=== PATIENT | male | born 1970 | race Caucasian/White ===

== ENCOUNTER → 2016-10-07 | Outpatient (CLI) | payer BC, OTHER ==
--- NOTE | 2016-10-07 11:01 | REP ---
. Chest two views HISTORY: Hypertension Comparison: 10/21/2014 The lungs are clear. The heart is normal in size. The pulmonary vasculature is normal in appearance. The bony structure is intact. IMPRESSION: No acute disease. Signed by Vick Díaz MD 10/07/2016 10:53 A
--- NOTE | 2016-10-07 20:20 | ECGEPIP ---
Stationary ECG Study [facility] Test Date: 2016-10-07 Pat Name: GERMÁN RANDHAWA Department: Room: - Gender: M Video Editing Intern: : 1970 Requested By: Giancarlo Solomon Order Number: [id number] Reading MD: Maury Connelly Measurements Intervals [place] Rate: 53 P: 33 DE: 171 QRS: 39 QRSD: 92 T: 42 QT: 406 QTc: 384 Interpretive Statements SINUS BRADYCARDIA Electronically Signed On 10-07-2016 20:20:44 EST by Maury Connelly
== END ==
LOC: M EKG 10:14
PROVIDERS: ATTEND Family Medicine
DX: R53.83 Other fatigue (principal); I10 Essential (primary) hypertension

== ENCOUNTER → 2017-12-19 | Outpatient (CLI) | payer BC, OTHER ==
[~2017-12-19] MED LIST: ISOVUE-370 76% 100ML VIAL (Q9967) As Ordered
== END ==
LOC: M RAD 06:56
DX: N13.30 Unspecified hydronephrosis (principal); K57.90 Diverticulosis of intestine, part unspecified, without perforation or abscess without bleeding
CPT/HCPCS: Q9967

== ENCOUNTER 2019-03-08 06:27 | Day surgery (SDC) | payer BC, OTHER ==
[~2019-03-08] VITALS: Ht 188 cm; Wt 98.9 kg
[~2019-03-08 06:27] MED LIST changes: +ALBU8.5H INH; +CHOL50003 PO; +GABA-843 PO; -ISOVUE-370 76% 100ML VIAL (Q9967) As Ordered; +MAGN1TAB26 PO; +OMEP20CA4 PO; +SILD100T
[2019-03-08] MEDS ORDERED: NS 1,000 ML IV ONE (07:00)
[2019-03-08] MEDS ORDERED: LIDOCAINE 2% INJ 100 MG/5 ML SDV (FOR ANES.) As Ordered ONE (07:28)
[2019-03-08] MEDS ORDERED: PROPOFOL 200 MG/20 ML VIAL As Ordered ONE ×3 (07:28→07:55)
--- NOTE | 2019-03-08 08:09 | ROOR ---
Patient Name: Delta Padilla Procedure Date: 03/08/2019 7:29 AM Date of : 1970 Age: 48 Room: [facility] Gender: Male Note Status: Finalized Procedure: Colonoscopy Indications: Screening for colorectal malignant neoplasm Providers: John Olivera MD Referring MD: PRETTY SPRINGER MD Requesting Provider: Medicines: Monitored Anesthesia Care Complications: No immediate complications. Procedure: Pre-Anesthesia Assessment: - Prior to the procedure, a History and Physical was performed, and patient medications and allergies were reviewed. The patient is competent. The risks and benefits of the procedure and the sedation options and risks were discussed with the patient. All questions were answered and informed consent was obtained. Patient identification and proposed procedure were verified by the physician, the nurse and the anesthesiologist in the procedure room. Mental Status Examination: alert and oriented. Airway Examination: normal oropharyngeal airway and neck mobility. Respiratory Examination: clear to auscultation. CV Examination: normal. Prophylactic Antibiotics: The patient does not require prophylactic antibiotics. Prior Anticoagulants: The patient has taken no previous anticoagulant or antiplatelet agents. ASA Grade Assessment: II - A patient with mild systemic disease. After reviewing the risks and benefits, the patient was deemed in satisfactory condition to undergo the procedure. The anesthesia plan was to use monitored anesthesia care (MAC). Immediately prior to administration of medications, the patient was re-assessed for adequacy to receive sedatives. The heart rate, respiratory rate, oxygen saturations, blood pressure, adequacy of pulmonary ventilation, and response to care were monitored throughout the procedure. The physical status of the patient was re-assessed after the procedure. The Colonoscope was introduced through the anus and advanced to the terminal ileum, with identification of the appendiceal orifice and IC valve. The colonoscopy was performed without difficulty. The patient tolerated the procedure well. The quality of the bowel preparation was good. The terminal ileum, ileocecal valve, appendiceal orifice, and rectum were photographed. Scope insertion time was 3 minutes. Scope withdrawal time was 9 minutes. The total duration of the procedure was 12 minutes. Findings: The perianal and digital rectal examinations were normal. The terminal ileum appeared normal. A 12 mm polyp was found in the hepatic flexure. The polyp was sessile. Polypectomy was attempted, initially using a hot snare. Polyp resection was incomplete with this device. This intervention then required a different device and polypectomy technique. The polyp was removed with a cold snare. Resection and retrieval were complete. A 5 mm polyp was found in the transverse colon. The polyp was sessile. The polyp was removed with a cold snare. Resection and retrieval were complete. Three sessile polyps were found in the recto-sigmoid colon. The polyps were 3 to 5 mm in size. These polyps were removed with a cold snare. Resection and retrieval were complete. Non-bleeding internal hemorrhoids were found during retroflexion. The hemorrhoids were small. Impression: - The examined portion of the ileum was normal. - One 12 mm polyp at the hepatic flexure, removed with a cold snare. Resected and retrieved. - One 5 mm polyp in the transverse colon, removed with a cold snare. Resected and retrieved. - Three 3 to 5 mm polyps at the recto-sigmoid colon, removed with a cold snare. Resected and retrieved. - Non-bleeding internal hemorrhoids. Recommendation: - Patient has a contact number available for emergencies. The signs and symptoms of potential delayed complications were discussed with the patient. Return to normal activities tomorrow. Written discharge instructions were provided to the patient. - Resume previous diet. - Continue present medications. - Await pathology results. - Repeat colonoscopy in 3 years for surveillance based on pathology results. - Telephone GI clinic for pathology results in 2 weeks. - Return to primary care physician. John Olivera MD John Olivera MD 03/08/2019 8:09:02 AM Electronically signed by John Olivera MD Number of Addenda: 0 Note Initiated On: 03/08/2019 7:29 AM Estimated Blood Loss: Estimated blood loss was minimal.
[2019-03-08 08:20] VITALS: BP 130/74
== END 2019-03-08 08:29 | disposition home or self-care (01) ==
LOC: M OPP 06:27
PROVIDERS: ATTEND Internal Medicine Gastroenterology
DX: D12.3 Benign neoplasm of transverse colon (principal); D12.7 Benign neoplasm of rectosigmoid junction; K63.5 Polyp of colon; K64.8 Other hemorrhoids; Z12.11 Encounter for screening for malignant neoplasm of colon

== ENCOUNTER → 2022-07-13 | Outpatient (CLI) | payer BC, OTHER ==
[~2022-07-13] MED LIST changes: +GABA-282 PO; -GABA-843 PO; +OMEP1CAP73 PO; -OMEP20CA4 PO
== END ==
LOC: M LABSMTC 10:36
PROVIDERS: ATTEND Anesthesiology
DX: Z01.812 Encounter for preprocedural laboratory examination (principal); Z20.822 Contact with and (suspected) exposure to COVID-19

== ENCOUNTER 2022-07-18 07:49 | Day surgery (SDC) | payer BC, OTHER ==
[~2022-07-18] VITALS: Ht 188 cm; Wt 102.5 kg
[~2022-07-18 07:49] MED LIST changes: +NS 1,000 ML IV ONE; +propofoL 200 MG/20 ML VIAL As Ordered ONE
[2022-07-18 10:20] VITALS: BP 101/62
== END 2022-07-18 10:24 | disposition home or self-care (01) ==
LOC: M OPP 07:49
PROVIDERS: ATTEND Internal Medicine Gastroenterology
DX: Z12.11 Encounter for screening for malignant neoplasm of colon (principal); D12.6 Benign neoplasm of colon, unspecified; K57.30 Diverticulosis of large intestine without perforation or abscess without bleeding; K64.4 Residual hemorrhoidal skin tags; K64.8 Other hemorrhoids; Z79.51 Long term (current) use of inhaled steroids; Z79.899 Other long term (current) drug therapy; J45.909 Unspecified asthma, uncomplicated; M19.90 Unspecified osteoarthritis, unspecified site; F17.290 Nicotine dependence, other tobacco product, uncomplicated; Z80.42 Family history of malignant neoplasm of prostate

== ENCOUNTER → 2023-05-24 | Outpatient (REF) | payer BC, OTHER ==
[~2023-05-24] MED LIST changes: -NS 1,000 ML IV ONE; -propofoL 200 MG/20 ML VIAL As Ordered ONE
[2023-05-24 17:26] LABS: C REACTIVE PROTEIN QUANTITATIV < 0.40 MG/DL (<1.0)
[2023-05-24 17:28] LABS: IMMUNOGLOBULIN A 160.9 MG/DL (40-350); RHEUMATOID FACTOR QUANT < 3.5 IU/ML (<14)
== END ==
LOC: M LAB REF 16:22
PROVIDERS: ATTEND Internal Medicine
DX: M13.80 Other specified arthritis, unspecified site (principal)

== ENCOUNTER → 2024-11-20 | Outpatient (REF) | payer OTHER, BC ==
[~2024-11-20] MED LIST changes: +GABA-1172 PO; -GABA-282 PO
== END ==
LOC: M LAB REF 14:18
PROVIDERS: ATTEND Internal Medicine
DX: E78.5 Hyperlipidemia, unspecified (principal)